=== PATIENT | male | born 1985 | race Caucasian/White ===

== ENCOUNTER 2019-04-20 13:43 | Emergency (ER) | payer MEDICAID ==
[~2019-04-20] VITALS: Ht 170.2 cm; Wt 94.3 kg
[2019-04-20 13:50] VITALS: Ht 170.2 cm; Wt 94.3 kg
[2019-04-20 14:20] VITALS: BP 142/81
== END 2019-04-20 14:20 | disposition home or self-care (01) ==
LOC: ED 13:43
DX: S82.002D Unspecified fracture of left patella, subsequent encounter for closed fracture with routine healing (principal); W01.0XXA Fall on same level from slipping, tripping and stumbling without subsequent striking against object, initial encounter; Y93.89 Activity, other specified; Y92.89 Other specified places as the place of occurrence of the external cause; Y99.8 Other external cause status